=== PATIENT | female | born 1935 | race Caucasian/White ===

== ENCOUNTER → 2018-12-17 | Outpatient (CLI) | payer MEDICARE, OTHER ==
--- NOTE | 2018-12-17 12:56 | MR ---
EXAMINATION TYPE: MR cervical spine wo con DATE OF EXAM: 12/17/2018 COMPARISON: HISTORY: Lesion of radial nerve, right upper limb TECHNIQUE: Multiplanar, multisequence images of the cervical spine were acquired. FINDINGS: The cervical spine vertebral bodies maintain normal vertebral body heights and alignment. M ultilevel disc desiccation is seen. Bone marrow signal is within normal limits. T2 hyperintense T1 hy pointense lacunar injury is seen of the aakash from prior lacunar infarct. Cervical cord signal appears homogeneous. Minimal mucosal thickening is seen within the left maxillary sinus posteriorly versus s mall mucosal retention cyst or polyp. C2-C3: Uncovertebral hypertrophy mildly narrows the left neural foramen. Right neural foramen and spi nal canal are patent. No disc herniation. C3-C4: There is a small left paracentral disc herniation, facet arthropathy and uncovertebral hypertr ophy creating mild left neural foraminal narrowing. Right neural foramen and spinal canal are patent. However the ventral subarachnoid space is mildly narrowed. C4-C5: There is a small posterior disc osteophyte complex. No neural foraminal narrowing or spinal ca nal stenosis. C5-C6: A small central posterior disc osteophyte complex is present. No neural foraminal narrowing or spinal canal stenosis. C6-C7: There is a right paracentral disc herniation with 3 mm cranial extrusion. This in combination with mild uncovertebral hypertrophy mildly narrows the right neural foramen. Left neural foramen is p atent. Mild spinal canal stenosis is seen. C7-T1: Disc desiccation without spinal canal stenosis nor neural foraminal narrowing. The thyroid gland is mildly heterogenous with a subcentimeter right thyroid nodule incidentally seen. IMPRESSION: 1. Right paracentral disc herniation at C6-C7 with 3 mm cranial disc extrusion creating mild spinal c anal stenosis. Degenerative disc disease at this level also contributes to mild right neural foramina l narrowing. 2. Small left paracentral disc herniation at C3-C4 mildly narrows the ventral subarachnoid space but does not create significant spinal canal stenosis. Mild left neural foraminal narrowing is seen. 3. At the remaining cervical levels there is mild multilevel degenerative disc disease as detailed ab ove. No additional area of spinal canal stenosis or disc herniation.
--- NOTE | 2018-12-17 13:12 | MR ---
EXAMINATION TYPE: MR chest wo con DATE OF EXAM: 12/17/2018 COMPARISON: None HISTORY: RT arm pain TECHNIQUE: Multiplanar, multisequence images of the right upper lateral chest were acquired without contrast. FINDINGS: The images are symmetric degraded by patient motion as the patient was heavy breathing thro ughout the examination. Although the examination is severely limited there is no gross evidence of mass or adenopathy along t he course of the radial artery or nerve in the visualized upper extremity and chest. Lymph nodes in t he right axilla measure up to 7 mm in short axis, within normal limits. Bandlike density isointensity and T2-weighted imaging within the right upper lung and lower lung may be artifactual however atelec tasis and endobronchial occlusion should be ruled out with initial evaluation of chest x-ray. There is a small right joint effusion with fluid in the subcoracoid bursa. Partial-thickness anterior insertional fiber supraspinatus low-grade tear is noted. This would be better evaluated with right [facility] MRI given the widening [id number] on today's exam limiting resolution. IMPRESSION: 1.Images are severely degraded and exam is limited due to patient motion as there is heavy breathing throughout the examination. Despite this there is no gross evidence of mass along the visualized cour se of the right radial nerve nor adenopathy. 2. Multifocal bandlike densities within the right lung may represent atelectasis although initial berkley luation with chest x-ray is recommended to exclude larger areas of atelectasis and possible endobronc hial obstruction. 3. Partial visualization of a low-grade partial-thickness anterior insertional fiber supraspinatus te ar.
== END | disposition home or self-care (01) ==
LOC: RADMRIMAIN 10:10
PROVIDERS: ATTEND Psychiatry & Neurology Neurology
DX: M48.02 Spinal stenosis, cervical region (principal); M50.21 Other cervical disc displacement, high cervical region; M50.323 Other cervical disc degeneration at C6-C7 level; M79.601 Pain in right arm; G56.31 Lesion of radial nerve, right upper limb
CPT/HCPCS: 71550; 72141

== ENCOUNTER → 2019-01-06 | Outpatient (CLI) | payer MEDICARE, OTHER ==
--- NOTE | 2019-01-06 13:04 | XR ---
EXAMINATION TYPE: XR chest 2V DATE OF EXAM: 01/06/2019 COMPARISON: Prior chest x-ray 01/12/2016 HISTORY: R05, extended-care facility placement TECHNIQUE: Frontal and lateral views of the chest are obtained. FINDINGS: Prominent lung volumes with flattening the hemidiaphragms compatible with underlying COPD, there are coronary artery calcifications. There is thoracic spondylosis. No evident airspace disease , pneumothorax, or pleural effusion. Aorta is dense. Heart size is stable. Patient is rotated. Biapic al pleural thickening is stable. IMPRESSION: No acute cardiopulmonary process.
== END ==
LOC: RADXRMAIN 12:23
PROVIDERS: ATTEND Internal Medicine
DX: R05 Cough (principal)
CPT/HCPCS: 71046

== ENCOUNTER 2019-01-13 10:57 | Inpatient (IN) | payer MEDICARE, OTHER ==
[2019-01-13] MEDS ORDERED: SODIUM CHLORIDE 0.9% 500 ML 500 ML IV STA (11:23)
--- NOTE | 2019-01-13 11:39 | ED ---
General Adult HPI - General Chief complaint: Overdose Stated complaint: overdose Time Seen by Provider: 01/13/19 11:01 Source: patient, EMS, RN notes reviewed Mode of arrival: EMS Limitations: no limitations - History of Present Illness Initial comments: Patient is a pleasant 83-year-old female presenting to the emergency department by EMS following a fall. Patient does admit to taking a handful of her medications earlier this morning. Patient admits to feeling depressed and suicidal. Family reports that they have concern that patient took up to 50 or 60 of her trazodone. Patient is unclear which medication she took. Patient does not remember falling and is unclear if she may have passed out or not. Patient has no specific physical complaints otherwise at this point. Patient does admit that she has mild discomfort of her left forehead when questioned were abrasions are present. Patient reportedly had a similar episode of overdose attempt previously. - Related Data Home Medications Medication Instructions Recorded Confirmed Amitriptyline HCl [Elavil] 50 mg PO HS 01/12/16 01/13/19 Meloxicam [Mobic] 7.5 mg PO BID 01/12/16 01/13/19 Gabapentin [Neurontin] 200 mg PO TID 01/13/19 01/13/19 Latanoprost [Xalatan 0.005%] 1 drop OPHTHALMIC HS 01/13/19 01/13/19 Lisinopril [Zestril] 20 mg PO DAILY 01/13/19 01/13/19 Melatonin 10 mg PO HS 01/13/19 01/13/19 Pioglitazone [Actos] 15 mg PO DAILY 01/13/19 01/13/19 Sertraline [Zoloft] 150 mg PO DAILY 01/13/19 01/13/19 rOPINIRole HCL [Requip] 0.5 mg PO HS 01/13/19 01/13/19 traZODone HCL [Desyrel] 100 mg PO HS 01/13/19 01/13/19 Previous Rx's Medication Instructions Recorded Atorvastatin [Lipitor] 80 mg PO HS #30 tab 01/14/16 Clopidogrel [Plavix] 75 mg PO DAILY #30 tab 01/14/16 Nitroglycerin Sl Tabs [Nitrostat] 0.4 mg SUBLINGUAL Q5M PRN #25 tab 01/14/16 Allergies Allergy/AdvReac Type Severity Reaction Status Date / Time celecoxib [From Celebrex] Allergy Unknown Verified 01/13/19 11:18 doxycycline calcium Allergy Unknown Verified 01/13/19 11:18 [From Vibramycin] doxycycline hyclate Allergy Unknown Verified 01/13/19 11:18 [From Vibramycin] doxycycline monohydrate Allergy Unknown Verified 01/13/19 11:18 [From Vibramycin] fentanyl Allergy Unknown Verified 01/13/19 11:18 aspirin AdvReac Nausea & Verified 01/13/19 11:18 Vomiting Iodine and Iodide Containing AdvReac Rash/Hives Verified 01/13/19 11:18 Produc Review of Systems ROS Statement: Those systems with pertinent positive or pertinent negative responses have been documented in the HPI. ROS Other: All systems not noted in ROS Statement are negative. Constitutional: Denies: fever Eyes: Denies: eye pain ENT: Denies: ear pain Respiratory: Denies: cough Cardiovascular: Denies: chest pain Endocrine: Denies: fatigue Gastrointestinal: Denies: abdominal pain Genitourinary: Denies: dysuria Musculoskeletal: Denies: back pain Skin: Denies: rash Neurological: Denies: confusion Past Medical History Past Medical History: Eye Disorder, Hypertension, Neurologic Disorder, Ost eoarthritis (OA) Additional Past Medical History / Comment(s): ulcerative colitis-does not eat fiber/fruit, spinal stenosis with back pain and sometimes loses feelings in legs if walks far, increased eye pressure-on gtts so it will not go into glaucoma, migraines which were helped when she had a hysterectomy. History of Any Multi-Drug Resistant Organisms: None Reported Past Surgical History: Appendectomy, Hysterectomy, Tonsillectomy Additional Past Surgical History / Comment(s): colonoscopy, bilateral cataract removal with lens implants. Past Anesthesia/Blood Transfusion Reactions: No Reported Reaction Past Psychological History: Depression Smoking Status: Current every day smoker Past Alcohol Use History: None Reported Past Drug Use History: None Reported - Past Family History Mother Family Medical History: CVA/TIA Additional Family Medical History / Comment(s): Mother was healthy until she of a CVA at the age of 77 yrs. Father Family Medical History: Cancer Additional Family Medical History / Comment(s): Father of bowel cancer at the age of 82 yrs. General Exam Limitations: no limitations General appearance: alert, in no apparent distress Head exam: Present: other (Left forehead abrasions) Eye exam: Present: normal appearance, PERRL, EOMI. Absent: nystagmus ENT exam: Present: normal oropharynx Neck exam: Present: normal inspection. Absent: tenderness Respiratory exam: Present: normal lung sounds bilaterally Cardiovascular Exam: Present: regular rate, normal rhythm GI/Abdominal exam: Present: soft. Absent: tenderness Extremities exam: Present: normal inspection. Absent: pedal edema, calf tenderness Neurological exam: Present: alert, CN II-XII intact. Absent: motor sensory deficit Expanded Neurological exam: Present: protecting the airway Patient oriented to: Present: person, place. Absent: time Motor strength exam: RUE: 5, LUE: 5, RLE: 5, LLE: 5 Eye Response: (4) open spontaneously Motor Response: (6) obeys commands Verbal Response: (4) confused conversation Psychiatric exam: Present: normal affect, normal mood Skin exam: Present: normal color Course Vital Signs 01/13/19 11:05 Temperature 97.4 F L Pulse Rate 90 Respiratory 18 Rate Blood Pressure 147/64 O2 Sat by Pulse 86 L Oximetry EKG Findings - EKG Comments: EKG Findings:: Normal sinus rhythm 90. OH 178. QRS 82. QT 450. QTC 550. Normal axis. Normal QRS. No acute ST change. Medical Decision Making - Medical Decision Making Patient evaluated and resting comfortably in bed. Please control does recommend monitoring and magnesium secondary to QTc. Case was discussed in detail with Dr. Layne, who will admit his patient. He does request consults with cardiology as well as psychiatry. Patient and family updated. - Lab Data Result diagrams: 01/13/19 11:25 01/13/19 11:25 Lab Results 01/13/19 01/13/19 01/13/19 Range/Units 11:25 11:25 11:25 WBC 10.1 (3.8-10.6) k/uL RBC 4.78 (3.80-5.40) m/uL Hgb 13.1 (11.4-16.0) gm/dL Hct 41.4 (34.0-46.0) % MCV 86.6 (80.0-100.0) fL MCH 27.5 (25.0-35.0) pg MCHC 31.7 (31.0-37.0) g/dL RDW 15.1 (11.5-15.5) % Plt Count 232 (150-450) k/uL Neutrophils % 85 % Lymphocytes % 9 % Monocytes % 4 % Eosinophils % 1 % Basophils % 1 % Neutrophils # 8.5 H (1.3-7.7) k/uL Lymphocytes # 0.9 L (1.0-4.8) k/uL Monocytes # 0.4 (0-1.0) k/uL Eosinophils # 0.1 (0-0.7) k/uL Basophils # 0.1 (0-0.2) k/uL Hypochromasia Slight PT 10.6 (9.0-12.0) sec INR 1.0 (<1.2) Sodium 139 (137-145) mmol/L Potassium 4.2 (3.5-5.1) mmol/L Chloride 102 (98-107) mmol/L Carbon Dioxide 29 (22-30) mmol/L Anion Gap 8 mmol/L BUN 14 (7-17) mg/dL Creatinine 0.84 (0.52-1.04) mg/dL Est GFR (CKD-EPI)AfAm 75 (>60 ml/min/1.73 sqM) Est GFR (CKD-EPI)NonAf 65 (>60 ml/min/1.73 sqM) Glucose 179 H (74-99) mg/dL Calcium 8.8 (8.4-10.2) mg/dL Total Bilirubin 0.4 (0.2-1.3) mg/dL AST 20 (14-36) U/L ALT 14 (9-52) U/L Alkaline Phosphatase 112 (38-126) U/L Creatine Kinase 35 (30-135) U/L Total Protein 6.5 (6.3-8.2) g/dL Albumin 3.8 (3.5-5.0) g/dL Urine Color Urine Appearance (Clear) Urine pH (5.0-8.0) Ur Specific [place] (1.001-1.035) Urine Protein (Negative) Urine Glucose (UA) (Negative) Urine Ketones (Negative) Urine Blood (Negative) Urine Nitrite (Negative) Urine Bilirubin (Negative) Urine Urobilinogen (<2.0) mg/dL Ur Leukocyte Esterase (Negative) Urine RBC (0-5) /hpf Urine WBC (0-5) /hpf Hyaline Casts (0-2) /lpf Urine Mucus (None) /hpf Salicylates <1.0 mg/dL Urine Opiates Screen (NotDetected) Ur Oxycodone Screen (NotDetected) Urine Methadone Screen (NotDetected) Ur Propoxyphene Screen (NotDetected) Acetaminophen <10.0 ug/mL Ur Barbiturates Screen (NotDetected) U Tricyclic Antidepress (NotDetected) Ur Phencyclidine Scrn (NotDetected) Ur Amphetamines Screen (NotDetected) U Methamphetamines Scrn (NotDetected) U Benzodiazepines Scrn (NotDetected) Urine Cocaine Screen (NotDetected) U Marijuana (THC) Screen (NotDetected) Serum Alcohol <10 mg/dL 01/13/19 Range/Units 12:15 WBC (3.8-10.6) k/uL RBC (3.80-5.40) m/uL Hgb (11.4-16.0) gm/dL Hct (34.0-46.0) % MCV (80.0-100.0) fL MCH (25.0-35.0) pg MCHC (31.0-37.0) g/dL RDW (11.5-15.5) % Plt Count (150-450) k/uL Neutrophils % % Lymphocytes % % Monocytes % % Eosinophils % % Basophils % % Neutrophils # (1.3-7.7) k/uL Lymphocytes # (1.0-4.8) k/uL Monocytes # (0-1.0) k/uL Eosinophils # (0-0.7) k/uL Basophils # (0-0.2) k/uL Hypochromasia PT (9.0-12.0) sec INR (<1.2) Sodium (137-145) mmol/L Potassium (3.5-5.1) mmol/L Chloride (98-107) mmol/L Carbon Dioxide (22-30) mmol/L Anion Gap mmol/L BUN (7-17) mg/dL Creatinine (0.52-1.04) mg/dL Est GFR (CKD-EPI)AfAm (>60 ml/min/1.73 sqM) Est GFR (CKD-EPI)NonAf (>60 ml/min/1.73 sqM) Glucose (74-99) mg/dL Calcium (8.4-10.2) mg/dL Total Bilirubin (0.2-1.3) mg/dL AST (14-36) U/L ALT (9-52) U/L Alkaline Phosphatase (38-126) U/L Creatine Kinase (30-135) U/L Total Protein (6.3-8.2) g/dL Albumin (3.5-5.0) g/dL Urine Color Yellow Urine Appearance Clear (Clear) Urine pH 6.5 (5.0-8.0) Ur Specific [place] 1.014 (1.001-1.035) Urine Protein Trace H (Negative) Urine Glucose (UA) Trace H (Negative) Urine Ketones 1+ H (Negative) Urine Blood Trace H (Negative) Urine Nitrite Negative (Negative) Urine Bilirubin Negative (Negative) Urine Urobilinogen <2.0 (<2.0) mg/dL Ur Leukocyte Esterase Negative (Negative) Urine RBC 7 H (0-5) /hpf Urine WBC 1 (0-5) /hpf Hyaline Casts 6 H (0-2) /lpf Urine Mucus Rare H (None) /hpf Salicylates mg/dL Urine Opiates Screen Not Detected (NotDetected) Ur Oxycodone Screen Not Detected (NotDetected) Urine Methadone Screen Not Detected (NotDetected) Ur Propoxyphene Screen Not Detected (NotDetected) Acetaminophen ug/mL Ur Barbiturates Screen Not Detected (NotDetected) U Tricyclic Antidepress Detected H (NotDetected) Ur Phencyclidine Scrn Not Detected (NotDetected) Ur Amphetamines Screen Not Detected (NotDetected) U Methamphetamines Scrn Not Detected (NotDetected) U Benzodiazepines Scrn Not Detected (NotDetected) Urine Cocaine Screen Not Detected (NotDetected) U Marijuana (THC) Screen Not Detected (NotDetected) Serum Alcohol mg/dL - Radiology Data Radiology results: report reviewed (Computed tomography scan of the brain reveals no acute process. Atrophy. C-spine without fracture.), image reviewed (X-ray shows no acute process) Disposition Clinical Impression: Drug overdose, Prolonged QT interval Disposition: ADMITTED IP TO THIS [facility] Is patient prescribed a controlled substance at d/c from ED?: No Referrals: Bud Moore MD [Primary Care Provider] - 1-2 days Decision Time: 14:04
[2019-01-13 11:40] LABS: Basophils # (A) 0.1 k/uL (0-0.2); Basophils % (A) 1 %; Eosinophils # (A) 0.1 k/uL (0-0.7); Eosinophils % (A) 1 %; HCT 41.4 % (34.0-46.0); HGB 13.1 gm/dL (11.4-16.0); Hypochromasia Slight; Lymphocytes # (A) 0.9 k/uL (1.0-4.8); Lymphocytes % (A) 9 %; MCH 27.5 pg (25.0-35.0); MCHC 31.7 g/dL (31.0-37.0); MCV 86.6 fL (80.0-100.0); Mean Platelet Volume 7.3; Monocytes # (A) 0.4 k/uL (0-1.0); Monocytes % (A) 4 %; Neutrophils # (A) 8.5 k/uL (1.3-7.7); Neutrophils % (A) 85 %; Platelet Count 232 k/uL (150-450); RBC 4.78 m/uL (3.80-5.40); RDW 15.1 % (11.5-15.5); WBC 10.1 k/uL (3.8-10.6)
[2019-01-13 11:43] LABS: Prothrombin Time 10.6 sec (9.0-12.0)
[2019-01-13 11:56] LABS: ALT 14 U/L (9-52); AST 20 U/L (14-36); Acetaminophen <10.0 ug/mL; African American GFR (CKD) 75 (>60 ml/min/1.73 sqM); Albumin 3.8 g/dL (3.5-5.0); Alcohol <10 mg/dL; Alkaline Phosphatase 112 U/L (38-126); Anion Gap 8 mmol/L; Blood Urea Nitrogen 14 mg/dL (7-17); Calcium 8.8 mg/dL (8.4-10.2); Carbon Dioxide 29 mmol/L (22-30); Chloride 102 mmol/L (98-107); Creatine Kinase 35 U/L (30-135); Glucose 179 mg/dL (74-99); Potassium 4.2 mmol/L (3.5-5.1); Salicylate <1.0 mg/dL; Sodium 139 mmol/L (137-145); Total Bilirubin 0.4 mg/dL (0.2-1.3); Total Protein 6.5 g/dL (6.3-8.2)
--- NOTE | 2019-01-13 12:20 | CT ---
EXAMINATION TYPE: CT brain cspine wo con DATE OF EXAM: 01/13/2019 COMPARISON: MRI cervical spine December 17, 2018. HISTORY: Alleged overdose. Fall, patient found face down on floor with headache and neck pain. CT DLP: 1429.5 mGycm. Automated Exposure Control for Dose Reduction was Utilized. TECHNIQUE: CT scan of the head and cervical spine are performed without contrast. FINDINGS: There is no acute intracranial hemorrhage or midline shift identified. Diffuse ventricula r and sulcal prominence is identified. Low-attenuation in deep and periventricular white matter is se en. Vascular calcification distal internal carotid arteries is present. Patchy soft tissue density bi lateral external auditory canals is felt to reflect cerumen. Opacity with air-fluid level left maxill adair sinus is present. There is mild to moderate mucosal thickening involving anterior ethmoid sinuses bilaterally. Globes are intact bilaterally. Calvarium is intact. Cervical spine is visualized in its entirety from C1 through upper thoracic levels and demonstrates s table and satisfactory alignment without evidence of acute fracture or dislocation. Prevertebral sof t tissue appears within normal limits. The C1-C2 articulation is within normal limits on the coronal images. Osseous structures are demineralized. Vertebral body heights and disc space heights are fair ly well-maintained. No large posterior disc herniations are seen on sagittal images. Review of axial images shows multilevel uncovertebral facet degenerative changes contributing to multilevel neural fo raminal narrowing most prominent left C3-C4 level on axial image 43 and right C4-C5 level on axial im age 51 as well as left C5-C6 level on axial image 56. Thyroid gland is normal in size. Lung apices sh ow no pneumothorax. Moderate calcified plaque bilateral carotid bulbs extends into proximal internal carotid arteries is incidentally noted. IMPRESSION: 1. There is no acute fracture or dislocation evident in the cervical spine. 2. No acute intracranial hemorrhage or midline shift is seen. Mild to moderate diffuse cerebral atrop hy and chronic small vessel ischemic change with left maxillary sinus disease noted.
[2019-01-13 12:41] LABS: Appearance,Urine Clear (Clear); Bilirubin,Urine Negative (Negative); Blood,Urine Trace (Negative); Color,Urine Yellow; Glucose,Urine (UA) Trace (Negative); Hyaline Casts,Urine 6 /lpf (0-2); Ketones,Urine 1+ (Negative); Leukocyte Esterase,Urine Negative (Negative); Mucus,Urine Rare /hpf; Nitrite,Urine Negative (Negative); PH, Urine 6.5 (5.0-8.0); Protein,Urine Trace (Negative); RBC,Urine 7 /hpf (0-5); Specific Gravity,Urine 1.014 (1.001-1.035); Urobilinogen,Urine <2.0 mg/dL (<2.0); WBC,Urine 1 /hpf (0-5)
[2019-01-13 12:50] LABS: Amphetamine Screen,Urine Not Detected (NotDetected); Barbiturate Screen,Urine Not Detected (NotDetected); Benzodiazepines Screen,Urine Not Detected (NotDetected); Cocaine Screen,Urine Not Detected (NotDetected); Methadone Screen, Urine Not Detected (NotDetected); Opiate Screen,Urine Not Detected (NotDetected); Oxycodone Screen, Urine Not Detected (NotDetected); Phencyclidine Screen,Urine Not Detected (NotDetected); Tricyclic Antidepressant,Urine Detected (NotDetected); Urn Cannabinoid Scrn Not Detected (NotDetected)
[2019-01-13] MEDS ORDERED: MAGNESIUM SULFATE-D5W PMX 1 GM in DEXTROSE/WATER 1 100ML.BAG IVPB ONE (13:40)
--- NOTE | 2019-01-13 13:45 | XR ---
EXAMINATION TYPE: XR chest 2V DATE OF EXAM: 01/13/2019 COMPARISON: Chest x-ray from one week ago. HISTORY: Drug overdose. Chest pain with fall injury today. TECHNIQUE: Frontal and lateral views of the chest are obtained. FINDINGS: There is chronic parenchymal change without suspicious focal air space opacity, pleural ef fusion, or pneumothorax seen. The cardiac silhouette size is mildly enlarged. Old fracture deformity posterior lateral right fifth rib is redemonstrated. Overlying EKG leads are seen on current study. IMPRESSION: Chronic changes and mild cardiomegaly without acute pulmonary process.
[2019-01-13] MEDS ORDERED: NALOXONE 0.4 MG/ML 1 ML VIAL IV PRN (14:04)
[2019-01-13] MEDS: SODIUM CHLORIDE 0.9% 1,000 ML IV SCH (14:31)
[2019-01-13] MEDS: ATORVASTATIN 80 MG TAB PO SCH (21:59)
[2019-01-13] MEDS: MELATONIN 5 MG TABLET PO SCH (21:59)
[2019-01-13] MEDS: NICOTINE 14MG/24HR PATCH TRANSDERM SCH (21:59)
[2019-01-13] MEDS: LATANOPROST 0.005% OPHTH DROPS 2.5 ML BTL RIGHT EYE SCH (21:59)
[2019-01-13] MEDS: GABAPENTIN 100 MG CAP PO SCH (23:14)
[2019-01-14 03:03] LABS: Magnesium 2.2 mg/dL (1.6-2.3); Phosphorus 4.4 mg/dL (2.5-4.5); Potassium 4.3 mmol/L (3.5-5.1)
--- NOTE | 2019-01-14 05:46 | HP ---
HISTORY AND PHYSICAL Lona is an 83-year-old female. CHIEF COMPLAINT: Patient brought in by EMS apparently after a fall. HISTORY OF PRESENT ILLNESS: The patient apparently was being watched at home by her [id number] when she was awaken with a fall. It does appear that the patient also had taken medications consisting of trazodone, which she has been on for depression and also to help sleep. The patient has been brought into the emergency room. She has been fatigued but responsive. She does admit to taking the pills and apparently she also had an episode 6 weeks ago where she overtook her imipramine. Family has been in the process of making arrangements for an assisted living situation for her. The patient also has had weakness of her right upper extremities secondary to brachial plexus injury related to the episode 6 weeks previous. PAST MEDICAL HISTORY: Past medical history is positive for atherosclerotic heart disease. She does have a history of previous smoking and tobacco use disorder with underlying COPD, hypertension, hyperlipidemia, history of back pain with spinal stenosis, specifically of the lumbar region and osteoarthritis diffusely for which in the past she has used muscle relaxants and there is a history of depression and more recently she has had the brachial plexus injury to the right upper extremity. No history of diabetes or definitive stroke. HOME MEDICATIONS: Patient's home medications included the: 1. Trazodone 100 mg at bedtime. 2. Requip 0.5 at bedtime for restless legs syndrome. 3. Zoloft also 150 mg daily for depression. 4. Actos 15 mg daily. 5. Nitroglycerin 0.4 mg as needed for pain. 6. Mobic 7.5 twice a day for arthritic pain. 7. Melatonin 10 mg at bedtime for sleep and insomnia. 8. Zestril/lisinopril 20 mg daily. 9. She is on Xalatan eyedrops 0.005% 1 drop at night in both eyes. 10.Neurontin 200 mg 3 times a day. 11.Plavix 75 mg daily. 12.Atorvastatin 80 mg at bedtime. 13.Amitriptyline 50 mg at bedtime. REVIEW OF SYSTEMS: Presently, even though she is fatigued she does respond and denies any unusual shortness of breath or chest pain. She denied any nausea, vomiting, or recent bowel problems or leg edema. FAMILY HISTORY: Positive for father who had colon cancer and a history of stroke. SOCIAL HISTORY: The patient has lived independently, but more recently has been having family members with her. Positive for smoking a pack a day. No history of any excessive alcohol intake. PHYSICAL EXAMINATION: On physical examination, temperature is 97.6 with a pulse of 98, respirations 16, blood pressure 130/67, and she is 92% saturated on 2 L nasal cannula. Extraocular movements are intact. Neck is not overly stiff. Lungs were clear to auscultation. Heart tones were regular without murmurs. Abdomen is soft and nontender. Extremities reveal no edema. Neurologically, she does have weakness of the right upper extremity with the use of her hand, especially her thumb and strategic sourcing consultant. This is old related to her brachial plexus injury. She does note that she is in the hospital, does not know the month or day. Is otherwise able to move other parts of other extremities without focal deficits. LABORATORY TESTING: Her white count was 10.1, hemoglobin 13.1, and platelet count 232. INR is 1.0. Sodium was 139 with potassium 4.2 and a CO2 content of 29, BUN of 14 with creatinine of 0.84, random blood sugar is 179, GFR 65. Calcium is normal at 8.8. Liver function tests were unremarkable. Albumin is 3.8. Urine was 1+ for ketones, trace blood, 7 RBCs, 1 WBC. Drug screen revealed tricyclic antidepressants, otherwise was negative. Acetaminophen, serum alcohol were less than 10. Marijuana was not detected. Also, the patient did have x-rays which included a chest x-ray which showed chronic changes, cardiomegaly without acute process, and she also did have a head and neck CT scan which showed no evidence of acute fracture or dislocation and no evidence of intracranial hemorrhage or shift. There was mild to moderate cerebral atrophy associated with likely chronic small-vessel disease and left maxillary sinus disease. The patient's EKG revealed normal sinus rhythm, but her Q-wave was prolonged and her QT interval was prolonged at 450. No evidence of other ischemic changes or arrhythmias noted. IMPRESSION: Overall impression of this 83-year-old female with a history of depression, overtaking of her medicines and fall suffering somewhat of a closed head injury along with prolonged QT interval on her EKG. PLANS: At this point, plans are for her to receive magnesium to be monitored. Cardiology and psychiatric consult have been obtained and further recommendations, treatment pending clinical response and results of above. Also discussed with family with the son at the bedside. NAKUL / SAVAGEN: [id number] / DISHA
[2019-01-14 06:28] LABS: HGB 11.7 gm/dL (11.4-16.0); Hypochromasia Slight; MCH 27.2 pg (25.0-35.0); MCHC 30.9 g/dL (31.0-37.0); Mean Platelet Volume 7.2; Platelet Count 229 k/uL (150-450); RBC 4.31 m/uL (3.80-5.40); RDW 14.9 % (11.5-15.5); WBC 10.6 k/uL (3.8-10.6)
[2019-01-14 06:39] LABS: Calcium 8.8 mg/dL (8.4-10.2); Magnesium 2.1 mg/dL (1.6-2.3); Potassium 4.1 mmol/L (3.5-5.1)
--- NOTE | 2019-01-14 08:31 | P.PN ---
Progress Note - Text The patient is a 83-year-old female suffered a fall at home apparently after taking an increased amount of trazodone tablets. The patient has been depressed recently. Approximately 6 weeks ago she had overtaken imipramine and was hospitalized at [facility] and transferred to another psychiatric facility. EKG on presentation showed a prolonged QT interval. Patient this morning is resting but aroused. She knows that she is at [facility] and remembers that I am Dr. Su. She is not complaining of any chest pain or shortness of breath. No nausea or vomiting. Vital signs show temperature 98.6 with a pulse of 91 and respirations 17. Last blood pressure is 147/60 and she is 94% saturated on 3 L nasal cannula. She does have somewhat of a congested cough but her lungs are clear. Heart tones are regular. No distal edema. Abdomen is soft and nontender. No cranial nerve deficits. No focal weakness noted. Laboratory White count is 10.6 with a hemoglobin 11.7 and a platelet count of 229. Sodium is 136 with a potassium 4.1. CO2 content of 28 and BUN of 13 with a creatinine 0.97 given her a GFR of 55. Blood sugar was 106 with a calcium at 8.8 magnesium 2.1 this morning. Impressions and plans Patient with fall at home. Trazodone overdose. Depression. At this time we'll continue to monitor. Cardiology and psychiatric consults are to follow. Discussed with patient at bedside.
[2019-01-14] MEDS: CLOPIDOGREL 75 MG TAB PO SCH (09:22)
[2019-01-14] MEDS: NICOTINE 14MG/24HR PATCH TRANSDERM SCH (09:22)
[2019-01-14] MEDS: GABAPENTIN 100 MG CAP PO SCH ×3 (09:22→22:50)
[2019-01-14] MEDS: LISINOPRIL 20 MG TAB PO SCH (09:28)
[2019-01-14] MEDS: IPRATROPIUM-ALBUTEROL 3 ML NEB INHALATION SCH ×2 (12:00→19:16)
--- NOTE | 2019-01-14 14:41 | P.CN ---
Psychiatric Consult - . Consult date: 01/14/19 Consult:: 01/14/19 14:26 Identification: Patient is an 83-year-old female was brought to the hospital after falling and taking an overdose Reason for Consult: Depression, overdose History of Present Illness: Patient's chart was reviewed, her son was present and was the primary historian and the patient was seen and interviewed briefly. Per the patient's son the patient had taken an overdose of Soma which she had been prescribed to assist with her sleep and this may have been 6-8 weeks ago. 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 He states he feels his mother was begun on the trazodone and Zoloft while she was at [facility] because he is unaware of her taking those medications prior to overdose on Soma. Patient son and states that melatonin was added at some point to assist with her sleep. He states that she had been taking imipramine 50 mg at bedtime for a number of years for fibromyalgia and they also discovered that it assisted in controlling her incontinence and so she was restarted on that. He states that his mother had one prior psychiatric admission when she was in her 50s here at this hospital and he is unaware of whether she was taking medication for some period of time after that admission but is not aware of her taking any antidepressants most recently. He states that his mother took the 21 tablets of 100 mg trazodone after looking at the bottling counting the number of missing tablets from the date of the prescriptions being filled. Patient's [id number]-[id number]-pzh, his had been staying with her fjlalr-sx-wjx for the last several days assisting her in packing and getting ready to move to an assisted living facility in the [facility]. He states that they were to move her in on January 21 where they will be providing medication management and checking on her frequently. States that his mother is right handed and since the injury to her brachial plexus she is regained some movement and sensation in her right arm but continues to wear a brace on her right wrist and continues to not be able to use her right hand. He states that this is been extremely frustrating for her as she was someone who love to do crafts prior to her admission and overdose in November. He states that he feels the decision to move her, the stress of sorting through her things and packing things up may have precipitated the prior overdose. He is unaware of any other suicide attempts by his mother in the past. Patient remains slightly groggy and was only able to tell me that she been feeling lonely and took the medication yesterday morning because she was lonely and tired of living alone. She states that she's frustrated with the pain and inability to use her right hand. The interview was ended with the patient and she was groggy and was having difficulty responding to questions. Past Psychiatric History: Per the patient's son she had one admission in the past year in her 50s, he is unaware of her being on antidepressants recently and states that the trazodone and Zoloft were recent additions when she was at [facility] in [place] earlier in the year. Patient had been taking trazodone 100 mg at bedtime, Zoloft 150 mg daily, melatonin 10 mg at bedtime and imipramine 50 mg at bedtime. Past Medical/Surgical History: Patient has a history of coronary artery disease, COPD, hypertension, hyperlipidemia, spinal stenosis and is currently recovering from a brachial plexus injury and wearing a brace on her right wrist Social History: Per the patient's son the patient was born in [place] and came to the [facility] in [facility] where she met her in [facility] and they were in 1965. His father was in the in the [employer] for 30 years. He states that her extended family remained in [place] and the patient came to this country on her own. Patient's in 2011. They had 2 children. They have been living in the [facility] since 1977. Patient was living in the same home until 2 years ago when she was moved into a manufactured home closer to her daughter who lives in the area. Her son lives in [place]. He states that his mother worked multiple jobs in the past but has not worked for over 30 years. He states she was an active crafter doing multiple crafts, stating that when she became proficient at one crafter would move onto another, stating at one point his mother was making furniture. She was also an avid playroom attendant and continued to garden and do crafts work up until her prior suicide attempt. He states that she lost her dog just prior to moving into the [facility] home and he states that her level of functioning declined dramatically at the of the dog, stating the dog was a rate source of companionship. He states his mother had a limited number of friends but when around people was extremely social. He states that she is not driving and has been more isolated. Substance Use History: There is no history of substance abuse or alcohol use Mental status: Appearance/Attitude: Patient sitting in a hospital bed and she has abrasions on her left forehead and a bruise under her left eye and is wearing a brace on her right wrist. She made intermittent eye contact Behavior: Patient did not exhibit any psychomotor agitation but appeared slightly groggy and told me that she was having difficulty staying awake and focusing on my questions Speech/Language: Patient's speech was not spontaneous she responded to questions only, she spoke in a normal volume and rhythm and was coherent Thought Process: Patient was having difficulty organizing her thoughts she sta jonny because she was still feeling sleepy and somewhat confused Thought Content: Patient denied any auditory or visual hallucinations and no delusions or paranoid ideation were elicited. Patient reported that she was still feeling groggy and confused and was having difficulty responding to my questions and the interview was ended early Suicidal/Homicidal Ideation: Patient states that she wanted to and felt lonely and states that she took the rest of her bottle of trazodone in an attempt to kill herself because she felt lonely as well as frustrated with the lack of being able to use her right hand and being told that it may take months to recover function, she denied homicidal ideation Sensorium/Cognition: Patient is alert and oriented to person further cognitive testing was not performed due to the patient feeling confused and groggy Mood/Affect: Patient's mood is depressed her affect blunted Insight/Judgment: Patient's insight and judgment were not assessed Assessment: Patient has a history of one prior psychiatric admission in her 50s and then most recently at [facility] after taking an overdose of Soma at the end of November. Per the patient's son was the primary historian the patient had not been treated with antidepressants until most recently. He states that the trazodone and Zoloft were both begun during the day at [facility] in [place]. They had planned to move the patient to an assisted living facility before winter but had moved it up to next week due to her recent overdose in November. He states that he feels that her anxiety, concerns about the move to an assisted living facility, may have precipitated the overdose at the end of November. Patient's [id number] had been staying with the patient for the last several days to assist her in packing up her things and sorting through her things to accomplish the move next Saturday. Patient states that she took the overdose because she been feeling lonely, frustrated with the inability to use her right hand and being told that it could take months to recover function in her right hand. Diagnosis: Major depressive disorder, moderate severity Plan: Patient was unable to participate fully in the evaluation and she was feeling groggy and confused to most of the information was obtained from her son. I would continue one to one supervision of the patient that she reported to me that she was still having suicidal thoughts. Would not restart the trazodone or Zoloft at this time. Patient can continue to use the imipramine and melatonin. Will return to reevaluate the patient and assess whether she needs inpatient psychiatric care or not.
[2019-01-14] MEDS: ATORVASTATIN 80 MG TAB PO SCH (22:49)
[2019-01-15] MEDS: LATANOPROST 0.005% OPHTH DROPS 2.5 ML BTL RIGHT EYE SCH ×2 (06:56→21:17)
[2019-01-15] MEDS: MELATONIN 5 MG TABLET PO SCH ×2 (06:57→21:17)
[2019-01-15 07:49] LABS: Calcium 8.9 mg/dL (8.4-10.2); Magnesium 1.9 mg/dL (1.6-2.3); Phosphorus 3.3 mg/dL (2.5-4.5); Potassium 4.1 mmol/L (3.5-5.1)
[2019-01-15] MEDS: IPRATROPIUM-ALBUTEROL 3 ML NEB INHALATION SCH ×3 (07:54→20:50)
--- NOTE | 2019-01-15 08:21 | P.PN ---
Progress Note - Text The patient is an 83-year-old female who suffered a fall at home after taking a increased amount of trazodone tablets. Patient has had increasing depression. The patient on presentation also had a prolonged QT interval and was very lethargic. The patient has been evaluated by psych services and cardiology evaluation is in progress. This morning she is more alert. Sitting up in bed. She denies any chest pain or shortness of breath. Vital signs show temperature 97.9 with a pulse of 92. Her last blood pressure was 142/70. She was 88% saturated on 3 L. Lungs are generally clear. Heart tones were for the most part to rate control. Slightly irregular. Systolic murmur. Abdomen nontender. No unusual edema. No new focal neurological deficits noted. Laboratory Sodium is 138 with potassium 4.1. BUN is 15 with a creatinine 0.87. GFR is 62. Blood sugar 104. Calcium 8.9 with a phosphorus 3.3 and magnesium 1.9 this morning Impressions and plans Discussed with cardiology nurse this morning. The patient likely will be cleared from cardiac standpoint. We'll await further recommendations from psychiatry service. Progress notes were regarded. Discussed with patient at bedside this morning.
[2019-01-15] MEDS: SODIUM CHLORIDE 0.9% 1,000 ML IV SCH ×2 (09:42→15:24)
[2019-01-15] MEDS: GABAPENTIN 100 MG CAP PO SCH ×3 (10:40→21:17)
[2019-01-15] MEDS: CLOPIDOGREL 75 MG TAB PO SCH (10:40)
[2019-01-15] MEDS: LISINOPRIL 20 MG TAB PO SCH (10:40)
[2019-01-15] MEDS: NICOTINE 14MG/24HR PATCH TRANSDERM SCH (10:40)
--- NOTE | 2019-01-15 14:00 | P.PN ---
Subjective Progress Note Date: 01/15/19 This is an 83-year-old female who presented to the hospital after overdosing on trazodone.cardiology consultation was requested because of prolonged QT interval.her QTC on EKG yesterday showed 550, today shows 470. She denies any chest discomfort, no dizziness or lightheadedness. Arrangements are being made for her to be transferred to the psychiatric unit today.blood pressure 124/70 with a heart rate of 90, 93% on room air. Objective - Vital Signs Vital signs: Vital Signs Temp 98.4 F 01/15/19 13:36 Pulse 117 H 01/15/19 13:36 Resp 16 01/15/19 13:36 BP 155/64 01/15/19 13:36 Pulse Ox 92 L 01/15/19 13:36 Intake & Output 01/14/19 01/15/19 01/15/19 18:59 06:59 18:59 Intake Total 240 240 118 Output Total 200 Balance 240 240 -82 Weight 52 kg Intake: Oral 240 240 118 Output: Urine 200 Other: Voiding Method Bedside Commode # Voids 1 1 0 # Bowel Movements 1 1 0 - Exam PHYSICAL EXAMINATION: GENERAL:83-year-old female in no acute distress at the time of my examination HEENT: Head is atraumatic, normocephalic. Pupils equal, round. Sclera anicteric. Conjunctiva are clear. Mucous membranes of the mouth are moist. Neck is supple. There is no elevated jugular venous pressure.no carotid bruit is heard. HEART EXAMINATION: [Heart S1, S2 systolic murmur is heard. No murmur or gallop heard.] CHEST EXAMINATION:[ Lungs are clear to auscultation and precussion. No chest wall tenderness is noted on palpation or with deep breathing.] ABDOMEN: [ Soft, nontender. Bowel sounds are heard. No organomegaly noted]. EXTREMITIES:[ 2+ peripheral pulses with no evidence of peripheral edema and no calf tenderness noted]. NEUROLOGIC [patient is awake, alert and oriented X3.] . - Labs CBC & Chem 7: 01/14/19 06:03 01/15/19 06:40 Labs: Abnormal Lab Results - Last 24 Hours (Table) 01/15/19 Range/Units 06:40 Glucose 104 H (74-99) mg/dL Assessment and Plan Plan: assessment and plan #1 overdose on trazodone #2 depression #3 prolonged QT, improving #4prior history of smoking #5 underlying COPD #6 hypertension #7 hyperlipidemia #8 recent overdose approximately 6 weeks ago Plan From cardiology's perspective, the QT interval has improved today, we will follow this patient on an as-needed basis only, she may transfer to the psychiatric unit. DNP note has been reviewed, I agree with a documented findings and plan of care. Patient was seen and examined.
--- NOTE | 2019-01-15 14:16 | P.PN ---
Progress Note - Text Progress Note Date: 01/15/19 Interval History: Patient is an 83-year-old female is being seen in follow-up to a consultation, patient was seen in her room today and she stated that she had been depressed about being alone and upset about the long recovery of her right arm, she sustained an injury to her brachial plexus earlier this year when she took an overdose of Soma. Patient states that she was told by the physical therapist was coming to her house that he can take weeks and months and she was upset because she was not going to be able to make masks from records. She states that she is a person who enjoys doing her crafts and since she's been unable to use her right arm, she is right-handed she's not been able to do this. When she and I discussed why she took the overdose of Soma earlier this year she states she doesn't recall. She states that she is getting old, feeling lonely and then told me that she really doesn't want to be here. She regrets that she was not successful in her attempt, and states that the medications she was placed on at [facility] where she had been treated after her o verdose earlier this year were not being helpful. She states that she still is depressed, did not like the fact that she was moving to assisted living stating that she liked her house and was upset that her daughter told her that she needed to go to assisted living. Patient told me that she would not try suicide again stated that she regrets being here and doesn't want to be here and isn't sure that she will like assisted living. I spoke with her son and [id number] after I spoke with the patient, she asked me to speak with them outside of her room which I did. I discussed with them my recommendations which would be to transfer her to an inpatient psychiatric unit preferably a geriatric psychiatric unit so that medication could be adjusted and her mood to be stabilized prior to her going to an assisted living facility. They were in agreement with this plan. Mental Status: Appearance/Attitude: Patient is sitting up in a hospital bed in no acute distress she has some abrasions over her left eye as well as wearing a brace on her right wrist. Patient made only intermittent eye contact and was cooperative Behavior: Patient did not display any psychomotor agitation or retardation Speech/Language: Patient's speech is spontaneous however she needs encouragement to elaborate on her responses speaks in a normal volume and rhythm and she is coherent Thought Process: Patient's thought processes are goal-directed there is no evidence of loose association or racing thoughts Thought Content: Patient denies any auditory or visual hallucinations no delusions or paranoid ideation were elicited. Patient talks about feeling depressed because she is old, that she lives alone and that she really does not want to be here. She states that the medication she had been started on at [facility] were not up of any benefit and she still felt depressed. She states that she got upset because the physical therapist coming to the house told her that he could take weeks perhaps months for her right arm to recover and she states that she did not want to hear this and took the overdose of trazodone. She told me that she regretted she wasn't successful and could not tell me any reasons that she would not act on those thoughts in the future. She stated that she was upset with being told that she needed to move to assisted living but was unable to tell me why she took an overdose of Soma earlier this year. Patient states that she has difficulty sleeping, she has been eating. Suicidal/Homicidal Ideation: Patient reported to me that she doesn't want to be here, and denied any current plan or intent to act but could not tell me what would deter her from acting if she had those thoughts again and she also stated that she regrets that it wasn't successful she denied any current homicidal ideation Sensorium/Cognition: Patient is alert and oriented to person, place, and time and her recent and remote memory were not formally tested but appeared to be grossly intact Mood/Affect: Patient's mood is depressed and her affect is appropriate to her mood Insight/Judgment: Patient's insight and judgment are fair Assessment: patient was seen today alone and she told me that she was feeling depressed, had been upset and frustrated about the lack of progress in recovery of her right arm, she sustained a brachial plexus injury after overdose with Soma earlier this year. She told me that she regrets that she wasn't successful and doesn't want to be here. She did not think that any of her medications that she had been started on were of any benefit. She also could not guarantee to me that she would not act on those thoughts if they occurred again. She could not tell me why she did not ask her [id number] for help or tell her [id number] she was feeling that way when she took the overdose of trazodone recently as her [id number]-dnd had been living with her for several days. Patient states that she was upset about having to move to assisted living, told she couldn't recall why she took the overdose of Soma but was frustrated with being told that her recovery of the use of her right arm could take weeks to months, is feeling lonely, states that she is old and doesn't want to be here anymore. Plan: patient continues to voice thoughts that she doesn't want to be here, cannot guarantee to me that she would not act again on suicidal thoughts and states that she regrets she wasn't successful and so I feel that a transfer to an inpatient psychiatric unit is appropriate at this time so that her medication can be adjusted and her mood can be stabilized. Please continue the one-to-one sitter until the patient is transferred to a psychiatric unit and I spoke with the geriatric social worker regarding preferring to transfer this patient to a geriatric psychiatric unit or back to [facility] in [place] where she had been treated most recently. I spoke about this plan with both her son and [id number] and they were in agreement with the plan and I also discussed this with the patient. I will complete a physician certification, her son will complete a petition to accomplish transfer to an inpatient facility, once the patient is medically stable. Please and hesitate to contact me if there are any questions or concerns.
--- NOTE | 2019-01-15 14:21 | P.CRDCN ---
History of Present Illness Consult date: 01/14/19 Requesting physician: Bud Moore Reason for Consult (text): prolonged QT Chief complaint: drug overdose History of present illness: this is a pleasant 83-year-old female with history of atherosclerotic heart disease, prior smoking, COPD, hypertension, hyperlipidemia, back pain, depression, who came to the hospital after taking a drug overdose of trazodone. Apparently 6 weeks earlier patient had overdosed on imipramine. She has been quite depressed at home. Cardiology consultation was requested because of prolonged QT noted on the initial EKG.her EKG on presentation here showed a normal sinus rhythm with a QTc measuring at 550.chest x-ray showed chronic changes and myocardial megaly without any acute pulmonary process.CT of the head and spine did not reveal any acute fracture or dislocation, no acute intracranial hemorrhage or midline shift. pressure on arrival here 146/60 with a heart rate in the 90s, 86% on room air. White blood cell count is normal, hemoglobin 11.7, platelet count 229. Sodium 138, potassium 4.1, BUN 15 and creatinine 0.8. Magnesium 1.9.drug screen was positive for tricyclic antidepressants. Overall the patient is quite responsive at the time of my examination, she does feel depressed, and states that she did intentionally take these medications in an attempt to commit suicide. According to the patient she states she's extremely lonely and this is her reason for doing this. She denies any chest discomfort, no palpitations and her breathing otherwise is stable. Past Medical History Past Medical History: Eye Disorder, Hypertension, Neurologic Disorder, Osteoarthritis (OA) Additional Past Medical History / Comment(s): ulcerative colitis-does not eat fiber/fruit, spinal stenosis with back pain and sometimes loses feelings in legs if walks far, increased eye pressure-on gtts so it will not go into glaucoma, migraines which were helped when she had a hysterectomy., right radial nerve pain History of Any Multi-Drug Resistant Organisms: None Reported Past Surgical History: Appendectomy, Heart Catheterization With Stent, Hysterectomy, Tonsillectomy Additional Past Surgical History / Comment(s): colonoscopy, bilateral cataract removal with lens implants. Past Anesthesia/Blood Transfusion Reactions: No Reported Reaction Date of Last Stent Placement:: 01/13/2016 Past Psychological History: Depression Additional Psychological History / Comment(s): Pt states she has clinical depression and is managing it well. She lives alone. She is independent. She uses no assistive device. She drives. She came to [place] from [place] in [address]. Her spouse 4 1/2 yrs ago. They were for 46 yrs. Smoking Status: Current every day smoker Past Alcohol Use History: None Reported Additional Past Alcohol Use History / Comment(s): Pt states she started smoking at the age of 16 yrs and smokes alittle over 1 ppd. Past Drug Use History: None Reported - Past Family History Mother Family Medical History: CVA/TIA Additional Family Medical History / Comment(s): Mother was healthy until she of a CVA at the age of 77 yrs. Father Family Medical History: Cancer Additional Family Medical History / Comment(s): Father of bowel cancer at the age of 82 yrs. Medications and Allergies Home Medications Medication Instructions Recorded Confirmed Type Amitriptyline HCl [Elavil] 50 mg PO HS 01/12/16 01/13/19 History Meloxicam [Mobic] 7.5 mg PO BID 01/12/16 01/13/19 History Atorvastatin [Lipitor] 80 mg PO HS #30 tab 01/14/16 01/13/19 Rx Clopidogrel [Plavix] 75 mg PO DAILY #30 tab 01/14/16 01/13/19 Rx Nitroglycerin Sl Tabs [Nitrostat] 0.4 mg SUBLINGUAL Q5M PRN #25 tab 01/14/16 01/13/19 Rx Gabapentin [Neurontin] 200 mg PO TID 01/13/19 01/13/19 History Latanoprost [Xalatan 0.005%] 1 drop OPHTHALMIC HS 01/13/19 01/13/19 History Lisinopril [Zestril] 20 mg PO DAILY 01/13/19 01/13/19 History Melatonin 10 mg PO HS 01/13/19 01/13/19 History Pioglitazone [Actos] 15 mg PO DAILY 01/13/19 01/13/19 History Sertraline [Zoloft] 150 mg PO DAILY 01/13/19 01/13/19 History rOPINIRole HCL [Requip] 0.5 mg PO HS 01/13/19 01/13/19 History traZODone HCL [Desyrel] 100 mg PO HS 01/13/19 01/13/19 History Allergies Allergy/AdvReac Type Severity Reaction Status Date / Time celecoxib [From Celebrex] Allergy Unknown Verified 01/13/19 11:18 doxycycline calcium Allergy Unknown Verified 01/13/19 11:18 [From Vibramycin] doxycycline hyclate Allergy Unknown Verified 01/13/19 11:18 [From Vibramycin] doxycycline monohydrate Allergy Unknown Verified 01/13/19 11:18 [From Vibramycin] fentanyl Allergy Unknown Verified 01/13/19 11:18 aspirin AdvReac Nausea & Verified 01/13/19 11:18 Vomiting Iodine and Iodide Containing AdvReac Rash/Hives Verified 01/13/19 11:18 Produc Physical Exam Vitals: Vital Signs Temp Pulse Pulse Pulse Resp BP Pulse Ox 01/15/19 13:36 98.4 F 117 H 16 155/64 92 L 01/15/19 11:25 98.0 F 104 H 16 124/70 93 L 01/15/19 08:06 92 01/15/19 08:00 98.2 F 108 H 118/59 93 L 01/15/19 07:54 92 01/15/19 04:00 97.9 F 111 H 18 142/70 88 L 01/15/19 00:00 99.5 F 108 H 18 142/65 91 L 01/14/19 20:00 100.3 F H 95 18 136/75 96 01/14/19 19:27 90 01/14/19 19:17 92 12 97 01/14/19 16:00 98.2 F 96 20 117/57 96 Intake and Output 01/14/19 01/15/19 01/15/19 22:59 06:59 14:59 Intake Total 240 118 Output Total 200 Balance 240 -82 Intake: Oral 240 118 Output: Urine 200 Other: Voiding Method Bedside Commode # Voids 1 1 0 # Bowel Movements 1 1 0 Weight 52 kg PHYSICAL EXAMINATION: GENERAL:83-year-old female in no acute distress at the time of HEENT: Head is atraumatic, normocephalic. Pupils equal, round. Sclera anicteric. Conjunctiva are clear. Mucous membranes of the mouth are moist. Neck is supple. There is no elevated jugular venous pressure.no carotid bruit is heard. HEART EXAMINATION: [Heart S1, S2 systolic murmur is heard. No murmur or gallop heard.] CHEST EXAMINATION:[ Lungs are clear to auscultation and precussion. No chest wall tenderness is noted on palpation or with deep breathing.] ABDOMEN: [ Soft, nontender. Bowel sounds are heard. No organomegaly noted]. EXTREMITIES:[ 2+ peripheral pulses with no evidence of peripheral edema and no calf tenderness noted]. NEUROLOGIC [patient is awake, alert and oriented X2.] . Results 01/14/19 06:03 01/15/19 06:40 Comprehensive Metabolic Panel 01/15/19 Range/Units 06:40 Sodium 138 (137-145) mmol/L Potassium 4.1 (3.5-5.1) mmol/L Chloride 103 (98-107) mmol/L Carbon Dioxide 29 (22-30) mmol/L BUN 15 (7-17) mg/dL Creatinine 0.87 (0.52-1.04) mg/dL Glucose 104 H (74-99) mg/dL Calcium 8.9 (8.4-10.2) mg/dL Current Medications Generic Name Dose Route Start Last Admin Trade Name Freq PRN Reason Stop Dose Admin Albuterol/Ipratropium 3 ml 01/14/19 13:00 01/15/19 07:54 Duoneb 0.5 Mg-3 Mg/3 Ml Soln INHALATION 3 ml RT-TID KULWANT Administration Atorvastatin Calcium 80 mg 01/13/19 21:00 01/14/19 22:49 Lipitor PO 80 mg HS KULWANT Administration Clopidogrel Bisulfate 75 mg 01/14/19 09:00 01/15/19 10:40 Plavix PO 75 mg DAILY KULWANT Administration Gabapentin 200 mg 01/13/19 22:00 01/15/19 10:40 Neurontin PO 200 mg TID KULWANT Administration Sodium Chloride 1,000 mls @ 20 mls/hr 01/13/19 14:15 01/15/19 09:42 Saline 0.9% IV Not Given .Q24H KULWANT Latanoprost 1 drops 01/13/19 21:00 01/15/19 06:56 Xalatan 0.005% RIGHT EYE 1 drops HS KULWANT Administration Lisinopril 20 mg 01/14/19 09:00 01/15/19 10:40 Zestril PO 20 mg DAILY KULWANT Administration Melatonin 10 mg 01/13/19 21:00 01/15/19 06:57 Melatonin PO Not Given HS KULWANT Metoprolol Succinate 25 mg 01/16/19 09:00 Toprol Xl PO DAILY KULWANT Naloxone HCl 0.2 mg 01/13/19 14:04 Narcan IV Q2M PRN Opioid Reversal Nicotine 1 patch 01/13/19 19:15 01/15/19 10:40 Habitrol 14mg/24hr Patch TRANSDERM 1 patch DAILY KULWANT Administration Ropinirole HCl 0.5 mg 01/13/19 21:00 01/14/19 22:50 Requip PO 0.5 mg HS KULWANT Administration Intake and Output 01/14/19 01/15/19 01/15/19 22:59 06:59 14:59 Intake Total 240 118 Output Total 200 Balance 240 -82 Intake: Oral 240 118 Output: Urine 200 Other: Voiding Method Bedside Commode # Voids 1 1 0 # Bowel Movements 1 1 0 Weight 52 kg 01/14/19 06:03 01/15/19 06:40 EKG Interpretations (text) EKG shows a normal sinus rhythmwith a QTc measuring at 550. Assessment and Plan Plan: assessment and plan #1 overdose on trazodone #2 depression #3 prolonged QT #4prior history of smoking #5 underlying COPD #6 hypertension #7 hyperlipidemia #8 recent overdose approximately 6 weeks ago Plan from cardiology's perspective, we will continue to monitor the patient on the cardiac unit for another 24 hours, repeat EKG in the morning, if the QT interval has improved to patient may be transferred to the psych unit. DNP note has been reviewed, I agree with a documented findings and plan of care. Patient was seen and examined.
[2019-01-15] MEDS: ATORVASTATIN 80 MG TAB PO SCH (21:17)
[2019-01-16] MEDS: IPRATROPIUM-ALBUTEROL 3 ML NEB INHALATION SCH ×3 (07:05→20:07)
[2019-01-16] MEDS: GABAPENTIN 100 MG CAP PO SCH ×2 (07:52→16:23)
[2019-01-16] MEDS: NICOTINE 14MG/24HR PATCH TRANSDERM SCH (07:53)
[2019-01-16] MEDS: LISINOPRIL 20 MG TAB PO SCH (07:53)
[2019-01-16] MEDS: CLOPIDOGREL 75 MG TAB PO SCH (07:53)
[2019-01-16] MEDS ORDERED: ACETAMINOPHEN TAB 325 MG TAB PO PRN (07:55)
[2019-01-16] MEDS ORDERED: METOPROLOL SUCCINATE (ER) 25 MG TAB.ER.24H PO SCH (09:00)
[2019-01-16] MEDS: SODIUM CHLORIDE 0.9% 1,000 ML IV SCH (13:30)
[2019-01-16 13:56] VITALS: BP 103/57; RESP 16; TEMP 97.3
[2019-01-16 16:01] VITALS: PULSE 100
--- NOTE | 2019-01-16 16:05 | P.DS ---
Providers Date of admission: 01/13/19 14:04 Attending physician: Bud Moore Consults: 01/13/19 14:09 Consult Physician Urgent Consulting Provider: Robert Watkins Consult Reason/Comments: Syncope, prolonged QTC, overdose Do you want consulting provider notified?: Yes 01/13/19 14:10 Consult Physician Urgent Consulting Provider: Ryanne Babb Consult Reason/Comments: depression, overdose Do you want consulting provider notified?: Yes Primary care physician: Bud Moore On the patient is a 83-year-old female who was admitted on January 13 through the emergency room. Apparently she was found by her [id number] on the floor in her home. Patient apparently had fallen after taken in a increased amount of trazodone for which she was taken for depression. Patient apparently had also had a earlier suicide attempt to 6 weeks prior with [place]. The patient was found to have a prolonged QT interval and was also very sluggish and drowsy secondary to the medication overdose. Laboratory testing on presentation revealed a white count of 10 with a hemoglobin 13 and a platelet count of 232. Sodium was 139 with potassium 4.2 and a CO2 content of 29. BUN was 14 with creatinine 0.84. Initial blood sugar was elevated at 179 and GFR was 65. Calcium normal at 8.8. Liver function tests were normal. Drug screen was positive for tricyclic antidepressants for which she was on imipramine for incontinence. Head and neck computed tomography scan were unremarkable. EKG did show a prolonged QT interval. No definite ischemic changes. Hospital course The patient was seen by cardiology and psych services. Please refer to their notes. Electrolytes were monitored and replaced as needed. Her QT interval decreased and she did not show any further evidence of arrhythmias. At this time sex services looking at transfer to a psychiatric facility. Arrangements are in process. Present active medications Acetaminophen 650 mg every 6 hours when necessary for pain DuoNeb respiratory treatments 3 times a day as needed for cough and shortness of breath Lipitor 80 mg at at bedtime for cholesterol Plavix 75 mg daily Neurontin 200 mg 3 times a day for chronic pain Xalatan eyedrops 0.005% one drop in the right eye at at bedtime Lisinopril 20 mg daily for blood pressure Melatonin 10 mg at at bedtime for insomnia Metoprolol 25 mg daily Nicotine patch 14 mg daily as patient does have positive smoking history Requip 0.5 mg at at bedtime for restless leg syndrome. This morning patient is seen sitting up in a chair at the side of the bed. She is overall alert and oriented. Denies any chest pain or shortness of breath. No nausea or vomiting. Vital signs show temperature 98.2 with a pulse of 108 and respirations 20. Blood pressure 115/67 and she is 92% saturated on 4 L nasal cannula. Extraocular movements are intact. Lung and heart examination is clear and regular. No unusual edema. 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 Discharge diagnosis 1. Overdose of medication including trazodone with a long QT interval and change in mental status with sedation secondary to the medication. 2. Severe underlying depression. 3. 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 4. Atherosclerotic heart disease 5. Positive COPD and smoking history 6. Hypertension 7. Hyperlipidemia 8. Chronic back pain with spinal stenosis and chronic pain syndrome specifically lumbar region. 9. Chronic insomnia 10. Restless leg syndrome Diet and activities regular and as tolerated. Plan - Discharge Summary New Discharge Prescriptions: No Action Meloxicam [Mobic] 7.5 mg PO BID Amitriptyline HCl [Elavil] 50 mg PO HS Atorvastatin [Lipitor] 80 mg PO HS #30 tab Clopidogrel [Plavix] 75 mg PO DAILY #30 tab Nitroglycerin Sl Tabs [Nitrostat] 0.4 mg SUBLINGUAL Q5M PRN #25 tab PRN Reason: Chest Pain Gabapentin [Neurontin] 200 mg PO TID Pioglitazone [Actos] 15 mg PO DAILY rOPINIRole HCL [Requip] 0.5 mg PO HS Sertraline [Zoloft] 150 mg PO DAILY Latanoprost [Xalatan 0.005%] 1 drop OPHTHALMIC HS Lisinopril [Zestril] 20 mg PO DAILY Melatonin 10 mg PO HS traZODone HCL [Desyrel] 100 mg PO HS Discharge Medication List Amitriptyline HCl [Elavil] 50 mg PO HS 01/12/16 [History] Meloxicam [Mobic] 7.5 mg PO BID 01/12/16 [History] Atorvastatin [Lipitor] 80 mg PO HS #30 tab 01/14/16 [Rx] Clopidogrel [Plavix] 75 mg PO DAILY #30 tab 01/14/16 [Rx] Nitroglycerin Sl Tabs [Nitrostat] 0.4 mg SUBLINGUAL Q5M PRN #25 tab 01/14/16 [Rx] Gabapentin [Neurontin] 200 mg PO TID 01/13/19 [History] Latanoprost [Xalatan 0.005%] 1 drop OPHTHALMIC HS 01/13/19 [History] Lisinopril [Zestril] 20 mg PO DAILY 01/13/19 [History] Melatonin 10 mg PO HS 01/13/19 [History] Pioglitazone [Actos] 15 mg PO DAILY 01/13/19 [History] Sertraline [Zoloft] 150 mg PO DAILY 01/13/19 [History] rOPINIRole HCL [Requip] 0.5 mg PO HS 01/13/19 [History] traZODone HCL [Desyrel] 100 mg PO HS 01/13/19 [History] Follow up Appointment(s)/Referral(s): Bud Moore MD [Primary Care Provider] - 1-2 days
== END 2019-01-16 21:04 | DRG 918 ==
LOC: EC 10:57 → 3SCARD 14:04 → 4MS4W 01-15 11:07
PROVIDERS: ADMIT Internal Medicine; ATTEND Internal Medicine
DX: T43.211A Poisoning by selective serotonin and norepinephrine reuptake inhibitors, accidental (unintentional), initial encounter (principal); K51.90 Ulcerative colitis, unspecified, without complications; Z91.5 Personal history of self-harm; Z88.6 Allergy status to analgesic agent; Z88.1 Allergy status to other antibiotic agents; Z88.8 Allergy status to other drugs, medicaments and biological substances; E78.5 Hyperlipidemia, unspecified; F17.210 Nicotine dependence, cigarettes, uncomplicated; F32.9 Major depressive disorder, single episode, unspecified; F51.04 Psychophysiologic insomnia; G25.81 Restless legs syndrome; G89.4 Chronic pain syndrome; I10 Essential (primary) hypertension; I25.10 Atherosclerotic heart disease of native coronary artery without angina pectoris; I45.81 Long QT syndrome; J44.9 Chronic obstructive pulmonary disease, unspecified; R45.850 Homicidal ideations; M48.061 Spinal stenosis, lumbar region without neurogenic claudication; S60.811A Abrasion of right wrist, initial encounter; W19.XXXA Unspecified fall, initial encounter; Y92.009 Unspecified place in unspecified non-institutional (private) residence as the place of occurrence of the external cause; Z79.02 Long term (current) use of antithrombotics/antiplatelets; Z79.1 Long term (current) use of non-steroidal anti-inflammatories (NSAID); Z79.84 Long term (current) use of oral hypoglycemic drugs; Z79.899 Other long term (current) drug therapy; Z80.0 Family history of malignant neoplasm of digestive organs; Z82.3 Family history of stroke; Z90.710 Acquired absence of both cervix and uterus; Z96.1 Presence of intraocular lens; Z98.41 Cataract extraction status, right eye; Z98.42 Cataract extraction status, left eye; Z91.81 History of falling
CPT/HCPCS: 36415; 70450; 71046; 72125; 80048; 80053; 80306; 80320; 80329; 81001; 82550; 83520; 83735; 84100; 85025; 85610; 93005; 94640; 94760; 96361; 96365; 99285